=== PATIENT | female | born 1985 | race Caucasian/White ===

== ENCOUNTER 2016-05-02 18:21 | Emergency (ER) | payer MEDICAID ==
[2016-05-02] MEDS ORDERED: SODIUM CHLORIDE 0.9% 1,000 ML IV ONE (19:00)
== END 2016-05-02 22:55 | disposition home or self-care (01) ==
DX: O99.89 Other specified diseases and conditions complicating pregnancy, childbirth and the puerperium (principal); R06.02 Shortness of breath; R42 Dizziness and giddiness; O99.013 Anemia complicating pregnancy, third trimester; D64.9 Anemia, unspecified; Z3A.29 29 weeks gestation of pregnancy; Z53.20 Procedure and treatment not carried out because of patient's decision for unspecified reasons

== ENCOUNTER 2016-05-18 09:43 | Outpatient (CLI) | payer MEDICAID | END 2016-05-18 09:44 | disposition home or self-care (01) | DX: S62.616A Displaced fracture of proximal phalanx of right little finger, initial encounter for closed fracture (principal) ==

== ENCOUNTER 2016-07-05 08:00 | Outpatient (CLI) | payer MEDICAID | END 2016-07-05 08:01 | disposition home or self-care (01) | DX: O99.013 Anemia complicating pregnancy, third trimester (principal) ==

== ENCOUNTER 2016-07-18 06:58 | Outpatient (CLI) | payer MEDICAID | END 2016-07-18 06:59 | disposition critical access hospital (66) | DX: O72.2 Delayed and secondary postpartum hemorrhage (principal) | CPT/HCPCS: A0425; A0427 ==

== ENCOUNTER 2016-07-18 07:25 | Inpatient (IN) | payer MEDICAID ==
[2016-07-18] MEDS ORDERED: SODIUM CHLORIDE 0.9% 1,000 ML IV ONE ×3 (07:31→08:53)
--- NOTE | 2016-07-18 07:34 | ED Physician Documentation ---
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 denies: Now EGA (post ) Endocrine: denies: Easy bruising / bleeding Immunocompromised: denies: Immunocompromised PD PAST MEDICAL HISTORY - Past Surgical History Past Surgical History: No - Present Medications Home Medications: Ambulatory Orders Medication Instructions Recorded Confirmed No Known Home Medications [No 05/02/16 07/18/16 Known Home Medications] - Allergies Allergies/Adverse Reactions: Allergies Allergy/AdvReac Type Severity Reaction Status Date / Time metronidazole [From Flagyl] Allergy Hives Verified 07/18/16 07:33 - Social History Does the pt smoke?: No Smoking Status: Never smoker Does the pt drink ETOH?: No Does the pt have substance abuse?: No - Immunizations Immunizations are current?: Yes PD ED PE NORMAL - Vitals Vital signs reviewed: Yes - General General: Alert and oriented X 3 - Neck Neck: Supple, no meningeal sign - Cardiac Cardiac: RRR - Respiratory Respiratory: No respiratory distress, Clear bilaterally - Abdomen Abdomen: Other (uterus TTP and palpable several cm above umbilicus) - Female Female : Deferred (OB to eval, external exam - continued bleeding, per pourer off no tearing from delivery) - Derm Derm: Normal color - Neuro Neuro: Alert and oriented X 3 - Psych Psych: Normal mood Results - Vitals Vitals: Vital Signs - 24 hr 07/18/16 07:30 Temperature 36.4 C L Heart Rate 106 H Respiratory 14 Rate Blood Pressure 142/86 H O2 Saturation 98 Oxygen O2 Source Room air - Labs Labs: Laboratory Tests 07/18/16 08:13 WBC 20.3 H RBC 2.80 L Hgb 8.0 L Hct 23.3 L MCV 83.4 MCH 28.7 MCHC 34.3 RDW 14.6 Plt Count 213 MPV 10.0 Manual Slide Review Indicated PD MEDICAL DECISION MAKING - ED course ED course: OB and anesthesia present upon arrival blood type and cross on hold for OR pt to OR Departure - Departure Disposition: ED Transfer to [facility] Clinical Impression: hemorrhage Qualifiers: hemorrhage type: unspecified Qualified Code(s): O72.1 - Other immediate hemorrhage
[2016-07-18 08:27] LABS: BASOPHILS # (AUTO) 0.1 10^3/uL (0.0-0.1); BASOPHILS % (AUTO) 0.4 %; HCT - HEMATOCRIT 23.3 % (37.0-47.0); LYMPHOCYTES # (AUTO) 0.9 10^3/uL (1.5-3.5); LYMPHOCYTES % (AUTO) 4.4 %; MEAN CORPUSCULAR HEMOGLOBIN 28.7 pg (27.0-31.0); MEAN CORPUSCULAR HGB CONC 34.3 g/dL (32.0-36.0); MEAN CORPUSCULAR VOLUME 83.4 fL (81.0-99.0); MONOCYTES # (AUTO) 1.2 10^3/uL (0.0-1.0); MONOCYTES % (AUTO) 6.1 %; NEUTROPHILS # (AUTO) 18.1 10^3/uL (1.5-6.6); NEUTROPHILS % (AUTO) 89.1 %; RED CELL DISTRIBUTION WIDTH 14.6 % (12.0-15.0); UNCORRECTED WHITE BLOOD COUNT 20.3 x10^3/uL; WHITE BLOOD COUNT 20.3 x10^3/uL (4.8-10.8)
[2016-07-18 08:50] LABS: PLATELET MORPHOLOGY RARE GIANT PLATELETS (NORMAL)
[2016-07-18] MEDS ORDERED: LACTATED RINGERS 1,000 ML IV ONE ×3 (08:53→11:00)
[2016-07-18] MEDS ORDERED: miSOPROStol 200 MCG TABLET PR ONE ×2 (08:53)
[2016-07-18] MEDS ORDERED: fentaNYL 100 MCG/2 ML VIAL IVP ONE (09:35)
[2016-07-18] MEDS ORDERED: OXYTOCIN 10 UNIT/ML VIAL IV ONE (09:35)
[2016-07-18] MEDS ORDERED: DEXAMETHASONE 4 MG/ML VIAL IVP ONE (09:35)
[2016-07-18] MEDS ORDERED: MIDAZOLAM 2 MG/2 ML VIAL IVP ONE (09:35)
[2016-07-18] MEDS ORDERED: ACETAMINOPHEN 1,000 MG/100 ML VIAL IV ONE (09:35)
[2016-07-18] MEDS ORDERED: PROPOFOL 200 MG/20 ML VIAL IVP ONE (09:35)
[2016-07-18] MEDS ORDERED: LIDOCAINE-MPF 2% 5 ML VIAL IM ONE (09:35)
[2016-07-18] MEDS ORDERED: miSOPROStol 200 MCG TABLET PO ONE (09:35)
[2016-07-18] MEDS ORDERED: ONDANSETRON 4 MG/2 ML VIAL IVP ONE (09:35)
[2016-07-18] MEDS ORDERED: SUCCINYLCHOLINE 200 MG/10 ML VIAL IVP ONE (09:35)
[2016-07-18] MEDS ORDERED: HYDROmorphone 1 MG/ML SYRINGE IVP ONE (09:35)
[2016-07-18] MEDS ORDERED: ceFAZolin 1 GM VIAL IV ONE (09:35)
[2016-07-18] MEDS ORDERED: METHYLERGONOVINE 0.2 MG/ML AMP IVP ONE (09:35)
[2016-07-18 09:42] LABS: CALCIUM 8.4 mg/dL (8.5-10.3); CREATININE 0.7 mg/dL (0.4-1.0); POTASSIUM 3.7 mmol/L (3.5-5.0)
[2016-07-18] MEDS ORDERED: ONDANSETRON 4 MG/2 ML VIAL IVP PRN (09:49)
[2016-07-18] MEDS ORDERED: diphenhydrAMINE 25 MG CAPSULE PO PRN (09:49)
[2016-07-18] MEDS ORDERED: ZOLPIDEM 5 MG TABLET PO PRN (09:49)
[2016-07-18] MEDS ORDERED: HYDROcod/ACETAM 5/325 MG TABLET PO PRN (09:49)
[2016-07-18] MEDS ORDERED: WITCH HAZEL/GLYCERIN 1 EACH MED..PAD TOP PRN (09:49)
[2016-07-18] MEDS ORDERED: OXYTOCIN/LACTATED RINGERS 250 ML IV ONE (09:49)
[2016-07-18] MEDS ORDERED: HYDROCORTISONE/PRAMOXINE 10 GM PR PRN (09:49)
[2016-07-18] MEDS ORDERED: HYDROmorphone 1 MG/ML SYRINGE IVP PRN (09:59)
[2016-07-18] MEDS ORDERED: SODIUM CHLORIDE 0.9% 1,000 ML IV SCH (10:00)
[2016-07-18] MEDS ORDERED: diphenhydrAMINE INJ 50 MG/ML VIAL ONE (10:13)
--- NOTE | 2016-07-18 10:45 | OPERATIVE REPORT ---
Operative Report - General Procedure Date: 07/18/16 Pre-Op Diagnosis: Retained Placenta w Hemorhage Operative Procedure: Manual Extraction; D&C w Suction; Bakri Balloon Post-Op Diagnosis: Same Await Path - Procedure Note Anesthesia Technique: Primary Surgeon: Bethany Pathology: Placenta Estimated Blood Loss (in cc): 1,050 Drain/Tube Type: positive: Other (Bakri & Lott) - Other Other Information/Narrative: Blood Loss
[2016-07-18] MEDS: LACTATED RINGERS 1,000 ML IV SCH ×2 (11:38→20:02)
--- NOTE | 2016-07-18 11:38 | OPERATIVE REPORT ---
DATE OF SURGERY: 07/18/2016 00:00:00 PREOPERATIVE DIAGNOSES 1. Retained placenta after vaginal delivery. 2. Severe anemia. Hemoglobin 8.0 grams prior to procedure. 3. Uneventful vaginal delivery and care. POSTOPERATIVE DIAGNOSES 1. Hemorrhage with blood loss in excess of 1000. 2. Grade 3 placenta. 3. Retained placenta after vaginal delivery. 4. Severe anemia. Hemoglobin 8.0 grams prior to procedure. 5. Uneventful vaginal delivery and care. PROCEDURE: Manual removal, dilatation and curettage with suction; placement of Bakri balloon. SURGEON: Fabrice Sims MD, FACOG, FICS. AUTOMATIC LEHR OPERATOR: Dr. Caridad De Souza, general. ANESTHESIA: ET tube placed. COMPLICATIONS: Bleeding in excess of 1000 mL. ESTIMATED BLOOD LOSS: 1050 mL measured blood and clots. INTRAVENOUS FLUIDS: 3200 mL crystalloid. DRAINS 1. Bakri balloon with 400 mL of sterile fluid. 2. Lott catheter to gravity (placed in recovery room). FINDINGS 1. Exam under anesthesia finds only a minor superficial laceration under the left clitoral abran. The vagina and perineum are completely intact. There are no observed cervical tears. Prior to procedure, the uterus was enlarged 18 week size or greater with placenta firmly attached. Umbilical cord was 3-vessel and hung from the vagina. 2. After manual extraction, there was 1 cotyledon missing on inspection. Placenta was grade 3. Missing cotyledon was harvested with curettage. 3. Post D and C, 1-inch iodoform packing was used due to brisk bleeding that did not adequately control the blood loss. Bakri balloon was placed and inflated with 400 mL of sterile normal saline, which tamponaded the bleeding. TECHNIQUE: I met the patient and checker cashier, [facility], in the ER immediately after they arrived by the [facility]. The patient was evaluated, reference consultation. The mechanics of placental removal and possibility of D and C were introduced. The risks were outlined, inclusive of blood loss, transfusion, infection, perforation of uterus during D and C, possible need for secondary surgery, and uterine scarification/synechiae. All questions were answered. The patient stated that she would accept blood if necessary. The patient was informed that her hemoglobin was quite low at 8 grams. Two units of packed red blood cells were already on order. Informed consent paperwork was signed. The patient was taken to the OR and placed on the operating table in the supine position. She was uneventfully induced and intubated. She was moved to the low dorsal lithotomy position on Homero mobile stirrups. She was prepped and draped in the customary sterile fashion. Timeout briefing was done per protocol. The patient was examined under anesthesia. Weighted retractor was placed in the posterior vagina and the anterior cervical lip identified. Heel Trimmer inserted his left and through the vagina into the uterine cavity. The placenta was strongly adherent to the myometrium, in the posterior aspect of the myometrium. Finger curettage was used to loosen the placenta and traction placed on the umbilical cord. The placenta was then delivered and inspected. There was a small cotyledon missing from the surface of the placenta. The screen printing press operator then reexplored the uterus with his fingertips and could not locate the cotyledon. Next, a single-toothed tenaculum was placed on the anterior cervical lip and an 11 mm suction curet was easily introduced into the uterine cavity. The uterine cavity was systematically curettaged and a mason of placental material harvested. The bleeding was brisk. This prompted massage, Pitocin IV drip, Cytotec 800 mcg per rectum, and 1 amp of Methergine. Uterine packing of 1 inch iodoform was placed. We observed a continuous flow of blood despite packing. Packing was pulled and the screen printing press operator reexplored the uterine cavity and found no adherent fragments of placenta. Bakri balloon was then introduced into the cavity and inflated with 400 mL of sterile crystalloid. This stemmed the uterine bleeding. Vaginal packing was placed of iodoform saturated gauze. We observed for at least 5 more minutes, to ensure that there was no continued bleeding. The patient was uneventfully reversed from general anesthesia and sent to the recovery room in stable condition. Intraoperative events were discussed with the patient. She felt weak and faint with mild tachycardia. This prompted a transfusion of 2 units of packed red blood cells on hold. Electrolytes were ordered. We ensured that there were 2 functional IV sites. Lott catheter was placed for bladder drainage. Events were reviewed with the patient's and plans to keep her overnight with Bakri balloon deflation tomorrow morning. JOB #: [id number] EXT JOB #:[id number] POORNIMA
[2016-07-18] MEDS: IBUPROFEN 600 MG TABLET PO SCH ×2 (13:09→18:51)
[2016-07-18] MEDS ORDERED: SODIUM CHLORIDE FLUSH 0.9% 10 ML SYRINGE IVP ONE (14:24)
--- NOTE | 2016-07-18 20:23 | PROVIDER PROGRESS NOTE ---
Subjective - General Admit Date: 07/18/16 Procedure Date: 07/18/16 Post Op Days: 0 Procedure Performed: Manual Extraction; D&C: Bakri - Review of Systems Wound/Incisions: positive: Other (Min Rubra) Drain Type: Bakri & Lott Drain Output Description: 1774 urine; 175 Bakri General: positive: No symptoms HEENT: positive: No symptoms Pulmonary: positive: No symptoms Cardiovascular: positive: No symptoms Gastrointestinal: positive: No symptoms Genitourinary: positive: Other (Bakri In Place) Musculoskeletal: positive: No symptoms Skin: positive: No symptoms Psychiatric: positive: No symptoms Objective - Patient Data Vital Signs: Vital Signs x48h Temp Pulse Resp BP Pulse Ox 07/18/16 18:57 99.1 F 95 17 117/72 99 07/18/16 15:48 98.2 F 73 16 116/77 98 07/18/16 14:22 98.4 F 74 16 123/80 97 07/18/16 13:36 98.6 F 75 18 124/84 H 98 07/18/16 13:00 97.7 F 72 17 129/82 H 99 07/18/16 12:42 97.7 F 74 17 138/90 H 99 07/18/16 12:25 98.1 F 71 16 130/78 99 Intake & Output: Intake and Output Totals x24h 07/16/16 07/17/16 07/18/16 23:59 23:59 23:59 Intake Total 1648 Output Total 1550 Balance 98 - Lab Results Lab Results: 07/18/16 08:13 07/18/16 08:13 - Current Medications Current Medications: Current Medications Generic Name Dose Route Start Last Admin Trade Name Freq PRN Reason Stop Dose Admin Lactated Ringer's 1,000 mls @ 100 mls/hr 07/18/16 10:00 07/18/16 20:02 Lr IV 100 mls/hr .Q10H ELDON Administration Ibuprofen 600 mg 07/18/16 11:00 07/18/16 18:51 Motrin PO 600 mg Q6H ELDON Administration Physical Exam - Physical Exam General: positive: No acute distress, Well developed/nourished HEENT: positive: Moist mucous membranes Neck: positive: Supple w/out meningeal sx Abdomen: positive: Tender to palpation (Mild uterine tenderness; 17 wk size) Female : positive: Other (Reported mild nonfoul drainage by nursing) Extremities: positive: Normal ROM, No pedal edema Skin: positive: Warm and dry Neurologic: positive: Alert and Oriented X 3, Normal Sensation, Normal Speech
[2016-07-18] MEDS: DOCUSATE SODIUM 100 MG CAPSULE PO SCH (20:58)
[2016-07-19] MEDS: IBUPROFEN 600 MG TABLET PO SCH ×3 (00:58→12:35)
[2016-07-19] MEDS ORDERED: SODIUM CHLORIDE FLUSH 0.9% 10 ML SYRINGE IVP ONE (03:46)
[2016-07-19 05:50] LABS: BASOPHILS # (AUTO) 0.1 10^3/uL (0.0-0.1); BASOPHILS % (AUTO) 0.4 %; EOSINOPHILS # (AUTO) 0.1 10^3/uL (0.0-0.7); EOSINOPHILS % (AUTO) 0.5 %; HCT - HEMATOCRIT 24.6 % (37.0-47.0); HGB - HEMOGLOBIN 8.2 g/dL (12.0-16.0); LYMPHOCYTES # (AUTO) 1.7 10^3/uL (1.5-3.5); LYMPHOCYTES % (AUTO) 13.3 %; MEAN CORPUSCULAR HEMOGLOBIN 28.5 pg (27.0-31.0); MEAN CORPUSCULAR HGB CONC 33.2 g/dL (32.0-36.0); MEAN CORPUSCULAR VOLUME 85.8 fL (81.0-99.0); MEAN PLATELET VOLUME 9.8 fL (7.9-10.8); MONOCYTES # (AUTO) 0.8 10^3/uL (0.0-1.0); MONOCYTES % (AUTO) 6.2 %; NEUTROPHILS % (AUTO) 79.6 %; RED BLOOD COUNT 2.86 10^6/uL (4.20-5.40); UNCORRECTED WHITE BLOOD COUNT 12.5 x10^3/uL; WHITE BLOOD COUNT 12.5 x10^3/uL (4.8-10.8)
[2016-07-19 06:08] LABS: ALBUMIN/GLOBULIN RATIO 0.7 (1.0-2.2); BILIRUBIN,TOTAL < 0.2 mg/dL (0.2-1.0); BUN - BLOOD UREA NITROGEN 9 mg/dL (6-20); CALCIUM 7.8 mg/dL (8.5-10.3); CARBON DIOXIDE - CO2 24 mmol/L (21-32); CHLORIDE 110 mmol/L (101-111); CREATININE 0.8 mg/dL (0.4-1.0); GFR - MDRD 83 (>89); GLUCOSE 102 mg/dL (70-100); POTASSIUM 4.1 mmol/L (3.5-5.0); SODIUM 139 mmol/L (135-145); TOTAL PROTEIN 4.5 g/dL (6.7-8.2)
[2016-07-19] MEDS: LACTATED RINGERS 1,000 ML IV SCH (07:26)
--- NOTE | 2016-07-19 10:02 | PROVIDER PROGRESS NOTE ---
Subjective - General Admit Date: 07/18/16 Procedure Date: 07/18/16 Post Op Days: 1 Procedure Performed: Manual Extraction; D&C: Bakri - Review of Systems Wound/Incisions: positive: Healing well, Other (Min Rubra) Drain Type: Bakri & Lott Drain Output Description: 750 urine; 30 Bakri General: positive: No symptoms HEENT: positive: No symptoms Pulmonary: positive: No symptoms Cardiovascular: positive: No symptoms Gastrointestinal: positive: No symptoms Genitourinary: positive: Other (Bakri In Place) Musculoskeletal: positive: No symptoms Skin: positive: No symptoms Psychiatric: positive: No symptoms Objective - Patient Data Vital Signs: Vital Signs x48h Temp Pulse Resp BP Pulse Ox 07/19/16 07:31 98.4 F 80 17 112/80 97 07/19/16 04:00 98.2 F 79 16 105/68 97 Intake & Output: Intake and Output Totals x24h 07/17/16 07/18/16 07/19/16 23:59 23:59 23:59 Intake Total 2477 1176 Output Total 2305 780 Balance 172 396 - Lab Results Lab Results: 07/19/16 05:41 07/19/16 05:41 Other Lab Results: Lab Results x24hrs 07/19/16 07/19/16 Range/Units 05:41 05:41 WBC 12.5 H (4.8-10.8) x10^3/uL RBC 2.86 L (4.20-5.40) 10^6/uL Hgb 8.2 L (12.0-16.0) g/dL Hct 24.6 L (37.0-47.0) % MCV 85.8 (81.0-99.0) fL MCH 28.5 (27.0-31.0) pg MCHC 33.2 (32.0-36.0) g/dL RDW 15.0 (12.0-15.0) % Plt Count 168 (130-450) 10^3/uL MPV 9.8 (7.9-10.8) fL Neut # 10.0 H (1.5-6.6) 10^3/uL Lymph # 1.7 (1.5-3.5) 10^3/uL Butts # 0.8 (0.0-1.0) 10^3/uL Eos # 0.1 (0.0-0.7) 10^3/uL Baso # 0.1 (0.0-0.1) 10^3/uL Absolute Nucleated RBC 0.00 x10^3/uL Nucleated RBCs 0.0 /100WBC Sodium 139 (135-145) mmol/L Potassium 4.1 (3.5-5.0) mmol/L Chloride 110 (101-111) mmol/L Carbon Dioxide 24 (21-32) mmol/L Anion Gap 5.0 L (6-13) BUN 9 (6-20) mg/dL Creatinine 0.8 (0.4-1.0) mg/dL Estimated GFR (MDRD) 83 L (>89) Glucose 102 H (70-100) mg/dL Calcium 7.8 L (8.5-10.3) mg/dL Total Bilirubin < 0.2 L (0.2-1.0) mg/dL AST 49 H (10-42) IU/L ALT 35 (10-60) IU/L Alkaline Phosphatase 129 H (42-121) IU/L Total Protein 4.5 L (6.7-8.2) g/dL Albumin 1.9 L (3.2-5.5) g/dL Globulin 2.6 (2.1-4.2) g/dL Albumin/Globulin Ratio 0.7 L (1.0-2.2) - Current Medications Current Medications: Current Medications Generic Name Dose Route Start Last Admin Trade Name Freq PRN Reason Stop Dose Admin Docusate Sodium 100 mg 07/18/16 21:00 07/18/16 20:58 Colace 100mg Capsule PO 100 mg BID ELDON Administration Hydrocortisone/Pramoxine 1 spray 07/18/16 09:49 07/18/16 23:57 Epifoam AL 1 spray QID PRN Administration Hemorrhoids Sodium Chloride 1,000 mls @ 100 mls/hr 07/18/16 10:00 07/18/16 20:45 Normal Saline 0.9% IV 100 mls/hr .Q10H ELDON Administration Lactated Ringer's 1,000 mls @ 100 mls/hr 07/18/16 10:00 07/19/16 07:26 Lr IV 100 mls/hr .Q10H ELDON Administration Ibuprofen 600 mg 07/18/16 11:00 07/19/16 06:50 Motrin PO 600 mg Q6H ELDON Administration Witch Duyen/Glycerin 1 each 07/18/16 09:49 07/18/16 23:57 Tucks TOP 1 each QID PRN Administration Hemorrhoids Physical Exam - Physical Exam General: positive: Well developed/nourished, Alert HEENT: positive: Moist mucous membranes Neck: positive: Supple w/out meningeal sx Cardiac: positive: Regular Rate, Regular Rhythm Resipratory: positive: Clear to ausultation dulce maria Abdomen: positive: Normal Bowel sounds, Other (Uterus 16 wks & NT) Female : positive: Other (Bakri deflated then observed for 60 min and stable. Balloon removed) Extremities: positive: Normal ROM, No pedal edema Skin: positive: Warm and dry, Pale Neurologic: positive: Alert and Oriented X 3, Normal Sensation, Normal Speech Assess/Plan - Patient Problems Active Problems List: Current Active Problems hemorrhage (Acute) Active Problems Comments: No active bleeding beyond normal lochia. Pt still anemic post 2 PRBC but seems to tolerate a HBG of 8 grams well. Will monitor over today to determine if she tolerates normal activity. - Additional Planning Condition/Complexity: Stable My Orders: My Active Orders 07/18/16 10:47 Message to Nursing [RC] QSHIFT 07/18/16 20:29 Message to Nursing [RC] QSHIFT Time Spent: 31-60 minutes
[2016-07-19 12:03] VITALS: BP 124/89
[2016-07-19] MEDS: DOCUSATE SODIUM 100 MG CAPSULE PO SCH (12:35)
--- NOTE | 2016-07-19 13:30 | CONSULTATION NOTE ---
DATE OF CONSULTATION: 07/18/2016 00:00:00 DIAGNOSES 1. Retained placenta after normal vaginal delivery. 2. Term with reported normal care. 3. Anemia. Hemoglobin 8.0 grams. HISTORY OF PRESENT ILLNESS: The patient is a 31-year-old primigravida at 39 weeks' gestation who had an uneventful vaginal delivery earlier in the morning with Deidre Rawls, spanisher at [facility]. The patient failed to deliver the placenta despite a 60 minute waiting period and the bleeding was not reported to be excessive. The patient was known to have anemia in with a hematocrit in the high 30s. She was reported to have normal care. We await records from her and intranatal course from [place]. The patient reports regular menstrual periods with prior use of coital timing for contraception. Last menstrual period 11 OCT 2015, EDC 17 JUL 2016. The patient was diagnosed with pelvic inflammatory disease 5 years ago without history of laparoscopy. Treated with antibiotics. The patient discovered a sensitivity to Flagyl at that time. PAST MEDICAL HISTORY: The patient has a history of IBS, but otherwise no chronic disease problems to report. PAST SURGICAL HISTORY: None. ALLERGIES: FLAGYL. MEDICATIONS: vitamins and iron. SOCIAL HISTORY. 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 in a stable relationship. No drug , tobacco or alcohol use reported. FAMILY HISTORY: No congenital anomaly or defect history. No history of bleeding disorders. REVIEW OF SYSTEMS CONSTITUTIONAL: Fatigue. No fever, chills, or recent illness. HEENT: Negative. CARDIAC: Negative. RESPIRATORY: Negative. GASTROINTESTINAL: Irritable bowel syndrome, inactive currently. GENITOURINARY: Reference above. NEUROLOGIC: Negative. PSYCH: Negative. ENDOCRINE: Negative. HEMATOLOGIC/LYMPHATIC: Negative. Confirmed no personal easy bleeding tendencies. PHYSICAL EXAMINATION GENERAL: Well groomed, pleasant, alert. VITAL SIGNS: Temperature 98.2, pulse 73, blood pressure 116/77, respirations 16 , oxygen saturation 98. HEENT: Supple neck. No thyromegaly. Moist mucous membranes. LUNGS: Clear to auscultation. CARDIOVASCULAR: Regular, no murmur, no gallop. BREASTS: Full. No mass. ABDOMEN: No hepatosplenomegaly, no tenderness. UTERUS: 18 or slightly larger size. Mildly tender to palpation, firm. EXTERNAL GENITALIA: Minor laceration of the introital ring. Placenta cord hanging out. No evidence of placental material. EXTREMITIES: Range of motion normal, warm. Capillary refill. NEUROLOGICAL: Grossly intact sensorium and motor function. Patellar reflexes 2+ and equal. No clonus. SKIN: No skin breaks or rash noted. Decorative tattoos. BASELINE LABORATORY: Type and cross sent for 2 units, hemoglobin 8.0, normocytic , white count 20.3, platelets 213. Note, rare giant platelets and anisocytosis noted. Chemistry: Sodium 132, potassium 3.7, chloride 103, carbon dioxide 117, creatinine 0.7, glucose 126, calcium 8.4. ASSESSMENT: The patient is a 31-year-old woman who has recently had an uneventful and term delivery. Post-delivery, there is retained placenta. There are no factors by history that raise an increased risk of accreta. The patient is somewhat anxious and manual extraction will be best done with anesthesia. The patient had recently consumed breakfast prior to arrival. Will confer with anesthesia. PLAN 1. Sedation or general anesthesia as deemed appropriate. 2. Manual extraction with possible dilatation and curettage. We discussed the risks, benefits and alternatives with the patient and she strongly desires anesthesia and procedure. JOB #: [id number] EXT JOB #:[id number] POORNIMA
--- NOTE | 2016-07-19 17:13 | DISCHARGE SUMMARY ---
DATE OF ADMISSION: 07/18/2016 DATE OF DISCHARGE: 07/19/2016 DIAGNOSES: 1. Retained placenta after normal vaginal delivery. 2. Preprocedure/predelivery anemia (hemoglobin 8 grams). 3. Obstetric hemorrhage. PROCEDURES: Manual extraction of placenta under general anesthesia; Dilatation and curettage with suction; placement of Bakri balloon. COMPLICATIONS: Retained placenta with associated hemorrhage necessitating use of Bakri balloon and transfusion of 2 units packed red blood cells. HISTORY: The patient is a 31-year-old primigravida at 39 weeks, who had uneventful care and vaginal delivery with Deidre Rawls at the [facility]. Placenta failed to deliver despite 60 minutes and at the time bleeding was not reported as excessive. The patient had known anemia in . She was transferred to [facility] via ambulance. I evaluated her in the emergency room and prepared for removal of placenta under anesthesia. Reference admission/consultation notes. HOSPITAL COURSE: The patient was prepared for surgery. She underwent a manual removal that was for the most part successful except for a retained cotyledon. This was detected at the time of surgery and the uterus was completely evacuated with suction curettage. Post-delivery the bleeding was brisk and the uterus was packed with iodoform gauze. Pitocin and massage, Methergine and Cytotec were used. The packing was ineffective and therefore, removed. The Bakri balloon was uneventfully placed that was effective. Reference operative note. The patient went to the recovery room in stable condition. Total blood loss was measured at 1050 mL. She received 2 units of packed red blood cells in the recovery room and was subsequently transferred to the obstetric floor. On the obstetric floor supportive care was continued. Her sodium was noted to be low at 131 and subsequent IV adjustment to normal saline corrected it to 139. Preoperative hemoglobin was 8.0 and posttransfusion hemoglobin was 8.2. On the morning of postoperative day #1 Bakri balloon was deflated and uneventfully removed. There was no significant post-procedure bleeding. The patient was able to normal self care and care activities. She breastfed well without any difficulty. She strongly desired discharge home and was prepared for discharge. Complete instructions inclusive of call-back for fever over 100.5, foul discharge or excessive bleeding were given. The patient will followup with Deidre Rawls at the [facility]. DISCHARGE MEDICATIONS: 1. vitamins and iron once daily. 2. Ferasol 60mg twice daily. 3. Colace 200 mg once daily. JOB #: [id number] EXT JOB #:[id number] MTDD
== END 2016-07-19 16:35 | disposition home or self-care (01) | DRG 767 ==
LOC: EDUNIT# → ED 07:25 → SDS 07:45 → OB 10:15
PROVIDERS: ADMIT Obstetrics & Gynecology; ATTEND Obstetrics & Gynecology
PROC: 0W3R7ZZ Control Bleeding in Genitourinary Tract, Via Natural or Artificial Opening (ICD-10-PCS; 2016-07-18)
PROC: 30233N1 Transfusion of Nonautologous Red Blood Cells into Peripheral Vein, Percutaneous Approach (ICD-10-PCS; 2016-07-18)
PROC: 10D17ZZ Extraction of Products of Conception, Retained, Via Natural or Artificial Opening (ICD-10-PCS; principal; 2016-07-18 07:30)
DX: O72.0 Third-stage hemorrhage (principal); D62 Acute posthemorrhagic anemia; O90.81 Anemia of the puerperium; Z87.891 Personal history of nicotine dependence
CPT/HCPCS: 36415; 80048; 80053; 85025; 86850; 86900; 86901; 86920; 88307; 99283; 99284

== ENCOUNTER 2017-04-18 17:04 | Emergency (ER) | payer MEDICAID ==
[2017-04-18 17:14] VITALS: BP 122/69
--- NOTE | 2017-04-18 17:52 | ED Physician Documentation ---
PD HPI UPPER EXT INJURY - Stated complaint Stated Complaint: LT FINGER LAC - Chief complaint Chief Complaint: Laceration - History obtained from History obtained from: Patient - History of Present Illness Location: Left, Finger (middle finger dorsal PIP joint, flap lac.) Type of injury: Laceration (she was putting up wine glass and it fell and broke as she tried to catch it. Cut to dorsal PIP area of finger with flap lac. Bled briskly at first.) Where injury occurred: Home Timing - onset: Today Timing - details: Abrupt onset Associated symptoms: No: Weakness, Numbness Contributing factors: No: Anticoagulated Similar symptoms before: Has not had sx before Recently seen: Not recently seen Review of Systems Neurologic: denies: Focal weakness, Numbness PD PAST MEDICAL HISTORY - Past Medical History Past Medical History: Yes Cardiovascular: None Respiratory: None Neuro: None Endocrine/Autoimmune: None - Past Surgical History Past Surgical History: No - Present Medications Home Medications: Ambulatory Orders Medication Instructions Recorded Confirmed No Known Home Medications [No 05/02/16 04/18/17 Known Home Medications] - Allergies Allergies/Adverse Reactions: Allergies Allergy/AdvReac Type Severity Reaction Status Date / Time metronidazole [From Flagyl] Allergy Hives Verified 04/18/17 17:13 - Social History Does the pt smoke?: No Smoking Status: Never smoker Does the pt drink ETOH?: No Does the pt have substance abuse?: No - Immunizations Immunizations are current?: Yes PD ED PE NORMAL - Vitals Vital signs reviewed: Yes - General General: Alert and oriented X 3, No acute distress, Well developed/nourished - Derm Derm: Normal color, Warm and dry - Extremities Extremities: Other (left middle finger with flap lac to fatty layer at dorsal PIP oint. Does not affect tendon nor joint. No FB seen. God ROM though extension hurts some. Good color at tip. ) - Neuro Neuro: Alert and oriented X 3, No motor deficit, No sensory deficit Results - Vitals Vitals: Oxygen O2 Source Room air Procedures - Laceration (location) left middle finger Length in cm: 2 Wound type: Flap, Into subcut fat, Clean Neurovascular status: Sensory intact, Motor intact, Vascular intact Tendon involvement: Tendon intact. No: Tendon Injury Anesthesia: Lidocaine 1%, Marcaine 0.5% Wound Preparation: Irrigated copiously NS Skin layer closure: Nylon, Interrupted, Size #-0 - enter number (4), Sutures - enter # (9) Other: Patient tolerated well, No complications, Neurovascular intact, Dressing applied, Tetanus UTD PD MEDICAL DECISION MAKING - ED course Complexity details: considered differential (flap on knuckle that needs to be held down - sutured. ), d/w patient Departure - Departure Disposition: 01 Home, Self Care Clinical Impression: Finger laceration Qualifiers: Encounter type: initial encounter Finger: middle finger Damage to nail status: without damage Foreign body presence: without foreign body Laterality: left Qualified Code(s): S61.213A - Laceration without foreign body of left middle finger without damage to nail, initial encounter Condition: Stable Record reviewed to determine appropriate education?: Yes Instructions: ED Laceration Hand Comments: It is okay to wash and shower. Clean off the wound twice a day with soap and water, or peroxide and water. Apply some antibiotic ointment to it to keep it moist. Also to watch for signs of infection such as purulence, redness or increasing pain. Return to your primary care or the ER at the specified time for suture removal. Suture removal in 12-14 days. Tylenol or ibuprofen if needed for pains. Gently stretch out the finger as its healing so does not get too stiff. Discharge Date/Time: 04/18/17 18:30
== END 2017-04-18 18:30 | disposition home or self-care (01) ==
LOC: ED 17:04
DX: S61.213A Laceration without foreign body of left middle finger without damage to nail, initial encounter (principal); W25.XXXA Contact with sharp glass, initial encounter; Y92.019 Unspecified place in single-family (private) house as the place of occurrence of the external cause
CPT/HCPCS: 12001; 99282; 99283

== ENCOUNTER 2018-01-10 10:32 | Outpatient (CLI) | payer MEDICAID ==
--- NOTE | 2018-01-10 14:48 | Ultrasound Report ---
Reason: ENCTR FOR TEST, RESULT POSITIVE Procedure Date: 01/10/2018 Accession Number: [id number] / [id number] Procedure: US - OB First Trimester CPT Code: FULL RESULT: EXAM: FIRST TRIMESTER OBSTETRIC ULTRASOUND (Less than 11 weeks) EXAM DATE: 01/10/2018 11:19 AM. CLINICAL HISTORY: Enctr for test, result positive. LMP: 11/18/2017. COMPARISONS: None. TECHNIQUE: Transabdominal and transvaginal ultrasound examination with static image documentation. CLINICAL DATES: EGA 7 weeks 4 days with SUHAS 08/25/2018 based on last menstrual period. ASSESSMENT: Gestational Sac: Single intrauterine. Mean gestational sac diameter: 24 mm. Embryo: CRL (crown-rump length) 9.4 mm = 7 weeks 0 days. Cardiac activity: 141 beats per minute. Yolk sac: 3 mm. Amniotic fluid: Not accurately assessed at this gestational age. Early placenta: Not visible at this gestational age. Other: No perigestational fluid collection demonstrated. MATERNAL STRUCTURES: Uterus: Anteverted. Unremarkable. Cervix: Closed. Right Ovary/Adnexa: The ovary measures 2.8 x 1.5 x 2.4 cm, volume 5.3 cc. Unremarkable. Left Ovary/Adnexa: The ovary measures 2.6 x 1.2 x 1.1 cm, volume 1.8 cc. Unremarkable. Free Fluid: None. Other: None. IMPRESSION: 1. Single viable intrauterine at EGA 7 weeks 0 days with SUHAS 08/29/2018 based on crown-rump length, which is concordant with clinical dates. 2. Assigned dating is SUHAS 08/25/2018 based on last menstrual period. RADIA
== END 2018-01-10 10:33 | disposition home or self-care (01) ==
LOC: DI 10:32
PROVIDERS: ATTEND Registered Nurse
DX: Z32.01 Encounter for pregnancy test, result positive (principal); Z3A.01 Less than 8 weeks gestation of pregnancy
CPT/HCPCS: 76801

== ENCOUNTER 2018-01-29 12:00 | Outpatient (CLI) | payer MEDICAID ==
[2018-01-29 12:21] LABS: BASOPHILS % (AUTO) 0.6 %; EOSINOPHILS % (AUTO) 0.6 %; HGB - HEMOGLOBIN 13.5 g/dL (12.0-16.0); LYMPHOCYTES # (AUTO) 1.1 10^3/uL (1.5-3.5); LYMPHOCYTES % (AUTO) 18.9 %; MEAN CORPUSCULAR HGB CONC 34.3 g/dL (32.0-36.0); MEAN CORPUSCULAR VOLUME 84.4 fL (81.0-99.0); MEAN PLATELET VOLUME 7.9 fL (7.9-10.8); MONOCYTES # (AUTO) 0.2 10^3/uL (0.0-1.0); MONOCYTES % (AUTO) 4.2 %; NEUTROPHILS # (AUTO) 4.4 10^3/uL (1.5-6.6); NEUTROPHILS % (AUTO) 75.7 %; PLT - PLATELET COUNT 274 10^3/uL (130-450); RED BLOOD COUNT 4.65 10^6/uL (4.20-5.40); RED CELL DISTRIBUTION WIDTH 14.7 % (12.0-15.0); WHITE BLOOD COUNT 5.8 x10^3/uL (4.8-10.8)
[2018-01-29 12:45] LABS: BILIRUBIN,URINE NEGATIVE (NEGATIVE); GLUCOSE, URINE (UA) NEGATIVE (NEGATIVE); KETONES,URINE (UA) NEGATIVE (NEGATIVE); LEUKOCYTE ESTERASE, URINE SMALL (NEGATIVE); NITRITE,URINE NEGATIVE (NEGATIVE); OCCULT BLOOD,URINE NEGATIVE (NEGATIVE); PROTEIN,URINE NEGATIVE (NEGATIVE); UROBILINOGEN,URINE 0.2 (NORMAL) E.U./dL (NORMAL)
[2018-01-29 12:47] LABS: CLARITY,URINE HAZY (CLEAR)
[2018-01-29 12:50] LABS: RBC,URINE 0-5 /HPF (0-5)
[2018-01-29 12:51] LABS: BACTERIA,URINE Moderate /HPF (None Seen); SQUAMOUS EPITHELIAL CELL,UR MOD Squamous (<= Few)
[2018-01-30 12:11] LABS: HEPATITIS B SURFACE ANTIGEN NON-REACTIVE (NON-REACTIVE)
[2018-01-30 12:12] LABS: HEPATITIS C ANTIBODY NON-REACTIVE (NON-REACTIVE)
[2018-01-30 14:51] LABS: HIV AG/AB 4TH GEN NON-REACTIVE (NON-REACTIVE)
== END 2018-01-29 12:01 | disposition home or self-care (01) ==
LOC: LAB 12:00
PROVIDERS: ATTEND Registered Nurse
DX: Z33.1 Pregnant state, incidental (principal); Z31.5 Encounter for procreative genetic counseling
CPT/HCPCS: 36415; 81001; 81599; 85025; 86592; 86762; 86803; 86850; 86900; 86901; 87086; 87340; 87389

== ENCOUNTER 2018-03-01 14:14 | Outpatient (CLI) | payer MEDICAID | END 2018-03-01 14:15 | disposition home or self-care (01) | LOC: LAB.F 14:14 | PROVIDERS: ATTEND Registered Nurse | DX: R19.7 Diarrhea, unspecified (principal) | CPT/HCPCS: 87045; 87046; 87177; 87209 ==

== ENCOUNTER 2018-05-02 13:28 | Outpatient (CLI) | payer MEDICAID ==
--- NOTE | 2018-05-02 18:20 | Ultrasound Report ---
Reason: STATE,INCIDENTAL Procedure Date: 05/02/2018 Accession Number: [id number] / [id number] Procedure: US - OB Detailed Eval CPT Code: FULL RESULT: EXAM: COMPLETE OBSTETRICAL ULTRASOUND EXAM DATE: 05/02/2018 02:32 PM. CLINICAL HISTORY: anatomic survey. COMPARISON: OB FIRST TRIMESTER 01/10/2018 11:36 AM. TECHNIQUE: Real-time sonographic evaluation of the fetus performed by the drapery cutter machine. Multiple warehouse representative static images were saved for review. DATING: Established EGA 23 weeks 4 days with SUHAS 08/25/2018 based on physician stated SUHAS. EGA 23 weeks 4 days with SUHAS 08/25/2018 based on LMP. EGA 24 weeks 3 days with SUHAS 08/14/2018 based on the current ultrasound. GENERAL EVALUATION Dexter . Cardiac activity: 152 bpm. movement: Visualized. Presentation: Cephalic. Placenta: Anterior position. No evidence for previa. Umbilical cord: 3 vessel cord. Central placental cord origin. Amniotic fluid: Subjectively normal. MVP 13.1 cm. BIOMETRY Bi-Parietal Diameter (BPD): 6.1 cm, 25 weeks 0 days Head Circumference (HC): 22.5 cm, 24 weeks 4 days Abdominal Circumference (AC): 19.3 cm, 24 weeks 0 days Femur Length (FL): 4.3 cm, 24 weeks 0 days Estimated Weight: 659 g, 66 percentile for EGA of 23 weeks 4 days. ANATOMY Incomplete survey: LVOT was incompletely visualized due to position. The intracranial structures, profile, face/nose/lips, spine, 4 chamber heart and outflow tracts, stomach, abdominal wall and cord insertion, diaphragm, kidneys, bladder, and extremities were otherwise visualized and demonstrate no abnormality. MATERNAL STRUCTURES Uterus: Unremarkable. Cervix: Long and closed. Transabdominal length 3.9 cm. Right ovary/adnexa: Unremarkable. Left ovary/adnexa: Unremarkable. Free fluid: None. IMPRESSION: 1. Dexter live intrauterine with gestational age 23 weeks 4 days based on stated SUHAS of 08/25/2018. 2. Estimated weight is within expected limits for assigned dating. 3. LVOT was incompletely visualized due to position. Consider short interval follow-up ultrasound. Otherwise normal anatomic survey. No anatomic abnormalities are detected at this time. RADIA
== END 2018-05-02 13:29 | disposition home or self-care (01) ==
LOC: DI 13:28
PROVIDERS: ATTEND Registered Nurse
DX: Z36.89 Encounter for other specified antenatal screening (principal)
CPT/HCPCS: 76811

== ENCOUNTER 2018-05-21 08:37 | Outpatient (CLI) | payer MEDICAID ==
--- NOTE | 2018-05-21 10:38 | Ultrasound Report ---
Reason: SUPERVISION OF Procedure Date: 05/21/2018 Accession Number: [id number] / [id number] Procedure: US - OB F/U or Repeat CPT Code: FULL RESULT: EXAM: FOLLOW-UP OBSTETRICAL ULTRASOUND EXAM DATE: 05/21/2018 09:08 AM. CLINICAL HISTORY: Supervision of . COMPARISON: Most recent OB ultrasound 05/02/2018. TECHNIQUE: Real-time sonographic evaluation of the fetus performed by the senior applications engineer. Multiple plastic products sales representative static images were saved for review. DATING: Established EGA 26 weeks 2 days with SUHAS 08/25/2018 based on physician stated. GENERAL EVALUATION Dexter . Cardiac activity: 135 bpm. movement: Visualized. Presentation: Cephalic. Placenta: Anterior position. Amniotic fluid: Normal. CATALINO 18.7 cm. MVP 5.1 cm. BIOMETRY Not performed. ANATOMY Left ventricular outflow tract is well visualized today and appears normal. MATERNAL STRUCTURES A normal appearance to the ovaries and maternal adnexa. Cervix is long and closed transabdominal length 4.1 cm. IMPRESSION: 1. Dexter live intrauterine with gestational age 26 weeks 2 days based on physician stated. 2. Recall imaging to evaluate the left ventricular outflow tract is performed. The LVOT is well seen and appears normal. RADIA
== END 2018-05-21 08:38 | disposition home or self-care (01) ==
LOC: DI 08:37
PROVIDERS: ATTEND Registered Nurse
DX: Z34.90 Encounter for supervision of normal pregnancy, unspecified, unspecified trimester (principal)
CPT/HCPCS: 76816

== ENCOUNTER 2018-06-18 13:08 | Outpatient (CLI) | payer MEDICAID ==
[2018-06-18 18:20] LABS: MEAN CORPUSCULAR HEMOGLOBIN 28.2 pg (27.0-31.0); MEAN CORPUSCULAR HGB CONC 33.7 g/dL (32.0-36.0); MEAN CORPUSCULAR VOLUME 83.8 fL (81.0-99.0); MEAN PLATELET VOLUME 8.4 fL (7.9-10.8); RED BLOOD COUNT 3.54 10^6/uL (4.20-5.40); RED CELL DISTRIBUTION WIDTH 14.5 % (12.0-15.0)
== END 2018-06-18 13:09 | disposition home or self-care (01) ==
LOC: LAB.F 13:08
PROVIDERS: ATTEND Registered Nurse
DX: Z34.90 Encounter for supervision of normal pregnancy, unspecified, unspecified trimester (principal)
CPT/HCPCS: 36415; 82950; 85027; 86850

== ENCOUNTER 2018-07-02 13:04 | Outpatient (CLI) | payer MEDICAID ==
[2018-07-02 17:58] LABS: BASOPHILS % (AUTO) 0.5 %; EOSINOPHILS % (AUTO) 0.2 %; HGB - HEMOGLOBIN 9.6 g/dL (12.0-16.0); LYMPHOCYTES # (AUTO) 1.2 10^3/uL (1.5-3.5); LYMPHOCYTES % (AUTO) 18.2 %; MEAN CORPUSCULAR HGB CONC 32.7 g/dL (32.0-36.0); MEAN CORPUSCULAR VOLUME 82.7 fL (81.0-99.0); MEAN PLATELET VOLUME 8.6 fL (7.9-10.8); MONOCYTES # (AUTO) 0.4 10^3/uL (0.0-1.0); MONOCYTES % (AUTO) 5.9 %; NEUTROPHILS # (AUTO) 4.9 10^3/uL (1.5-6.6); NEUTROPHILS % (AUTO) 75.2 %; PLT - PLATELET COUNT 249 10^3/uL (130-450); RED BLOOD COUNT 3.53 10^6/uL (4.20-5.40); RED CELL DISTRIBUTION WIDTH 15.1 % (12.0-15.0); WHITE BLOOD COUNT 6.5 x10^3/uL (4.8-10.8)
[2018-07-02 18:36] LABS: INR 1.1 (0.8-1.2); PT - PROTHROMBIN TIME 12.1 secs (9.9-12.6)
== END 2018-07-02 13:05 | disposition home or self-care (01) ==
LOC: LAB.F 13:04
PROVIDERS: ATTEND Midwife
DX: R79.9 Abnormal finding of blood chemistry, unspecified (principal); Z34.83 Encounter for supervision of other normal pregnancy, third trimester
CPT/HCPCS: 36415; 85025; 85610

== ENCOUNTER 2018-07-26 13:06 | Outpatient (CLI) | payer MEDICAID | END 2018-07-26 13:07 | disposition critical access hospital (66) | LOC: EMS 13:06 | PROVIDERS: ATTEND Surgery | DX: O99.89 Other specified diseases and conditions complicating pregnancy, childbirth and the puerperium (principal); M54.9 Dorsalgia, unspecified | CPT/HCPCS: A0425; A0429; A0999 ==

== ENCOUNTER 2018-07-26 13:16 | Outpatient (CLI) | payer MEDICAID ==
[2018-07-26 13:59] VITALS: BP 117/71
--- NOTE | 2018-07-26 17:31 | PROVIDER PROGRESS NOTE ---
- HPI Chief Complaint: Other (right sided back pain) Current : Current EDU 08/25/18 Gestation 35 Weeks and 5 Days 2 Para 1 Vital Signs Temperature 36.8 C 07/26/18 13:49 Heart Rate 88 07/26/18 13:49 Respiratory Rate 18 07/26/18 13:49 Blood Pressure 117/71 07/26/18 13:49 Temperature 36.8 C 07/26/18 13:49 Heart Rate 88 07/26/18 13:49 Respiratory Rate 18 07/26/18 13:49 Blood Pressure 117/71 07/26/18 13:49 O2 Saturation - Exam Pt is acutely tender at the right SI joint. pt feel pain with motion of the right leg and sitting up. - Procedures OB Procedure Performed: NST (reactive) Diagnosis/Indication for NST: Other (Ob evaluation) NST Procedure: reactive. Date: 07/26/18
--- NOTE | 2018-07-26 17:45 | PREOP HISTORY & PHYSICAL ---
DATE OF SERVICE: 07/26/2018 Physician: Fabrice Cota MD PATIENT IDENTIFICATION: The patient is a 33-year-old. She is G2, P1 female. She is due on 08/25/2018. This was determined by early visit as well as ultrasound. CHIEF COMPLAINT: Right sacroiliac pain. HISTORY OF PRESENT ILLNESS: The patient states that roughly on Monday she developed progressively worsening right lower back pain. She states it is worse with movement. She has been utilizing a maternity belt intermittently. She denies any trauma or any other injury at this location. Of note is the fact that she had a previous retained placenta with her last delivery, which was a home . PAST MEDICAL HISTORY: At this time is unremarkable. PAST SURGICAL HISTORY: Positive for D and C following delivery. ALLERGIES: FLAGYL. CURRENT MEDICATIONS: Those of vitamins as well as iron. HABITS: The patient denies use of alcohol, tobacco, street or addictive drugs. PHYSICAL EXAMINATION GENERAL: A well-developed, well-nourished female, who experiences 9/10 pain with motion. Otherwise, she feels much better when lying still. HEENT: Pupils are equal and round. HEART: Regular rate and rhythm without murmurs. LUNGS: Lung longoria are clear without rales or wheezes. ABDOMEN: Soft, nontender. Gravid roughly at 35 cm. There is no tenderness in the uterus at all. She has negative straight legs on the left leg; however, when she moves the right leg she complains about pain at the right sacroiliac joint. Upon palpation, she has very marked distinct point tenderness of the right SI joint. She has a monitor strip which shows reactivity, but she is having contractions as she is currently her 1-year-old. IMPRESSION: Patient has right sacroiliac pain as well as sciatica. PLAN: We will have the patient administer local cold. She is also to followup with physical therapist. Of note is the fact the patient has some difficulty with anemia. She needs to be evaluated for this. She is scheduled for an appointment for further evaluation on the following day. TD: 07/26/2018 17:28 MTDD
== END 2018-07-26 15:00 | disposition home or self-care (01) ==
LOC: WFO 13:16 → FBP 13:41 → WFO 15:00
PROVIDERS: ATTEND Obstetrics & Gynecology
DX: O99.89 Other specified diseases and conditions complicating pregnancy, childbirth and the puerperium (principal); M54.41 Lumbago with sciatica, right side; Z3A.35 35 weeks gestation of pregnancy
CPT/HCPCS: 99212

== ENCOUNTER 2018-07-31 10:44 | Outpatient (CLI) | payer MEDICAID ==
[2018-07-31 18:05] LABS: BASOPHILS % (AUTO) 0.4 %; EOSINOPHILS % (AUTO) 0.8 %; HGB - HEMOGLOBIN 10.7 g/dL (12.0-16.0); LYMPHOCYTES # (AUTO) 1.2 10^3/uL (1.5-3.5); LYMPHOCYTES % (AUTO) 21.4 %; MEAN CORPUSCULAR HEMOGLOBIN 28.1 pg (27.0-31.0); MEAN CORPUSCULAR HGB CONC 33.1 g/dL (32.0-36.0); MEAN PLATELET VOLUME 8.4 fL (7.9-10.8); MONOCYTES # (AUTO) 0.4 10^3/uL (0.0-1.0); MONOCYTES % (AUTO) 7.2 %; NEUTROPHILS # (AUTO) 3.9 10^3/uL (1.5-6.6); NEUTROPHILS % (AUTO) 70.2 %; PLT - PLATELET COUNT 198 10^3/uL (130-450); RED CELL DISTRIBUTION WIDTH 20.4 % (12.0-15.0); WHITE BLOOD COUNT 5.5 x10^3/uL (4.8-10.8)
== END 2018-07-31 10:45 | disposition home or self-care (01) ==
LOC: LAB.F 10:44
PROVIDERS: ATTEND Midwife
DX: Z34.83 Encounter for supervision of other normal pregnancy, third trimester (principal); O99.019 Anemia complicating pregnancy, unspecified trimester
CPT/HCPCS: 36415; 85025